=== PATIENT | female | born 1955 | race Hispanic/Latino ===

== ENCOUNTER 2018-06-07 05:44 | Inpatient (IN) | payer MEDICARE, OTHER ==
--- NOTE | 2018-06-04 09:58 | Diagnostic Imaging Report ---
PROCEDURE: X-RAY CHEST, TWO VIEWS COMPARISON: None. INDICATIONS: PREOPERATIVE CHEST XRAY FOR RIGHT HIP SURGERY FINDINGS: LUNGS: No consolidations or edema. PLEURA: No effusions or pneumothorax. HEART & MEDIASTINUM: The heart is within normal size-limits. BONES & SOFT TISSUES: Significant degenerative changes of the right shoulder. Diffuse osteophytosis of the spine. CONCLUSION: No acute thoracic abnormality. Willy Urbina D.O. Dictated by: Willy Urbina D.O. on 06/04/2018 at 10:07 Electronically approved by: Willy Urbina D.O. on 06/04/2018 at 10:07
[2018-06-04 10:03] LABS: BASOPHILS # (AUTO) 0.1 (0.0-0.1); BASOPHILS % 0.8 % (0.0-1.0); EOSINOPHILS # (AUTO) 0.1 (0.0-0.4); HEMATOCRIT 43.1 % (34.2-44.1); HEMOGLOBIN 14.2 g/dL (12.0-16.0); LYMPHOCYTES # (AUTO) 1.5 (1.0-3.2); LYMPHOCYTES % 23.2 % (18.0-39.1); MEAN CORPUSCULAR HEMOGLOBIN 33.2 pg (28-32); MEAN CORPUSCULAR HGB CONC 32.9 g/dL (31-35); MEAN CORPUSCULAR VOLUME 100.7 fL (81-99); MONOCYTES # (AUTO) 0.5 (0.2-0.8); MONOCYTES % 8.1 % (4.4-11.3); NEUTROPHILS # (AUTO) 4.3 (2.1-6.9); NEUTROPHILS % 65.6 % (38.7-80.0); PLATELET COUNT 240 x10e3/uL (140-360); RED BLOOD COUNT 4.28 x10e6/uL (3.6-5.1); RED CELL DISTRIBUTION WIDTH 13.2 % (11.7-14.4)
[2018-06-04 10:22] LABS: ANION GAP 17.3 mmol/L (8-16); CALCIUM 10.4 mg/dL (8.4-10.2); CREATININE, SERUM 0.94 mg/dL (0.57-1.11); POTASSIUM 4.3 mmol/L (3.5-5.1)
[~2018-06-07] VITALS: Ht 149.9 cm; Wt 90.0 kg
[~2018-06-07 05:44] MED LIST: ATENOLOL50 MG PO; Aspirin PO; LISINOPRIL PO; LISINOPRIL-HCT1 EAC2; NORCO 10-325 T1 EACH; NORCO 7.5-3251 EACH PO; TRAMADOL; TYLENOL WITH C1 EACH PO; ULTRAM50 MG PO
--- OUTSIDE RECORDS SUMMARY | 2018-06-07 05:47 | XMS REPORT ---
Author Author [facility] Address Unknown Phone Unavailable Care Team Providers Care Treasury Specialist Name Role Phone LETTY PACE Unavailable Unavailable Problems This patient has no known problems. Allergies, Adverse Reactions, Alerts This patient has no known allergies or adverse reactions. Medications This patient has no known medications. Results Test Description Test Time Test Comments Text Results Atomic Results Result Comments CHEST 2 VIEWS 2018-06-04 10:07:00 [place] [id number] Patient Name: JA FLEMING MR #: [id number] : 1955 Age/Sex: 63/F Req #: [id number] Adm Physician: Ordered by: LETTY PACE MD Report #: [id number] Location: OR Room/Bed: Procedure: [id number] DX/CHEST 2 VIEWS Exam Date: Exam Time: REPORT STATUS: Signed PROCEDURE: X-RAY CHEST, TWO VIEWS COMPARISON: None. INDICATIONS: PRE OPERATIVE CHEST XRAY FOR RIGHT HIP SURGERY FINDINGS: LUNGS: No consolidations or edema. PLEURA: No effusions or pneumothorax. HEART MEDIASTINUM: The heart is within normal size-limits. BONES SOFT TISSUES: Significant degenerative changes of the right shoulder. Diffuse osteophytosis of the spine. CONCLUSION: No acute thoracic abnormality. Vinayak Urbina D.O. Dictated by: Vinayak Urbina D.O. on 06/04/2018 at 10:07 Electronically approved by: Vinayak Urbnia D.O. on 06/04/2018 at 10:07 Dictated By: VINAYAK URBINA DO 1007 Transcribed By: BETH on 06/04/18 1007 COPY TO: LETTY PACE MD
[2018-06-07] MEDS ORDERED: GABAPENTIN 300 MG CAP ONE (06:14)
[2018-06-07] MEDS ORDERED: DEXAMETHASONE SOD PHOS 10 MG/1 ML VIAL ONE (06:14)
[2018-06-07] MEDS ORDERED: CELECOXIB 200 MG CAP ONE (06:14)
[2018-06-07] MEDS ORDERED: CEFAZOLIN SOD 2 GM/D5W 50ML 50 ML IV ONE (06:15)
[2018-06-07] MEDS ORDERED: BACITRACIN 50,000 UNIT VIAL ONE (06:47)
[2018-06-07] MEDS ORDERED: MUPIROCIN 2% OINT 22 GM TUBE ONE (06:47)
[2018-06-07] MEDS ORDERED: HYDROGEN PEROXIDE 120 ML BTL ONE (06:59)
[2018-06-07] MEDS ORDERED: TRANEXAMIC ACID 1,000 MG/10 ML ML ONE (06:59)
[2018-06-07] MEDS ORDERED: BUPIVACAINE 7.5MG/ML /DEXTROSE 82.5MG/ML 2 ML AMP INJ ONE (07:19)
[2018-06-07] MEDS ORDERED: LIDOCAINE HCL 2% LOCAL 20 ML VIAL ONE (07:20)
[2018-06-07] MEDS ORDERED: ROPIVACAINE 246.25 MG, EPINEPHRINE HCL 1:1000 0.5 MG, CLONIDINE HCL 0.08 MG, KETOROLAC ... INJ ONE ×5 (07:30)
[2018-06-07] MEDS ORDERED: SODIUM CHLORIDE 0.9% 1000ML 1,000 ML IV SCH (09:40)
[2018-06-07] MEDS ORDERED: PROMETHAZINE HCL (IM) 25 MG/ML VIAL IM PRN (09:45)
[2018-06-07] MEDS ORDERED: ONDANSETRON HCL INJ 2 MG/ML VIAL IV PRN (09:45)
[2018-06-07] MEDS ORDERED: ACETAMINOPHEN 650 MG SUPP PR PRN (09:45)
[2018-06-07] MEDS ORDERED: HYDROCODONE/APAP 7.5MG-325MG 1 EA TAB PO PRN (09:45)
[2018-06-07] MEDS ORDERED: HYDROCODONE/APAP 5MG-325MG TAB PO PRN (09:45)
[2018-06-07] MEDS ORDERED: KETOROLAC TROMETHAMINE 30 MG/ML VIAL IV PRN (09:45)
[2018-06-07] MEDS ORDERED: DIPHENHYDRAMINE HCL INJ 50 MG/ML VIAL IM/IV PRN (09:45)
[2018-06-07] MEDS ORDERED: DOCUSATE SODIUM 100 MG CAP PO PRN (09:45)
[2018-06-07] MEDS: ACETAMINOPHEN 1000 MG/100 ML IV SCH ×2 (10:22→17:28)
--- NOTE | 2018-06-07 11:52 | Diagnostic Imaging Report ---
PROCEDURE:X-RAY PELVIS, AP VIEW COMPARISON:None. INDICATIONS:POST RIGHT HIP SURGERY FINDINGS: Limited post operative chest radiograph status post right total hip arthroplasty. Hardware appears intact without evidence of acute fracture or malalignment. There is a deformity with sclerotic changes and fragmentation of the left femoral head with severe degenerative changes of the left hip joint. CONCLUSION: Status post right total hip arthroplasty with intact hardware and unremarkable alignment. 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 Dictated by: ANSELMO STEPHENS M.D. on 06/07/2018 at 12:02 Electronically approved by: ANSELMO STEPHENS M.D. on 06/07/2018 at 12:02
[2018-06-07] MEDS ORDERED: HYDROMORPHONE 2MG/ML 2 MG/ML ML ONE (13:53)
[2018-06-07] MEDS ORDERED: CEFAZOLIN SOD 1 GM/D5W 50ML 50 ML IV SCH (14:00)
[2018-06-07 14:49] VITALS: BP 129/71
[2018-06-07 15:19] VITALS: BP 129/71
--- NOTE | 2018-06-07 15:31 | Operative Report ---
DATE OF PROCEDURE: June 07, 2018 __ASSISTANT: Cecil Wylie PA-C __The patient was brought to the operating room for induction of anesthesia. Throughout this case, my PA's assistance was necessary for retraction of soft tissue and positioning of the extremity. This allows for efficient and technically successful execution of the operation and is considered medically necessary. PREOPERATIVE DIAGNOSIS: Right hip erosive arthritis. POSTOPERATIVE DIAGNOSIS: Right hip erosive arthritis. PROCEDURE: Complex right total hip arthroplasty. INDICATIONS: The patient is a morbidly obese 63-year-old lady who has rapidly progressive erosive arthritis in both hips. She feels her symptoms are slightly worse on the right compared to the left. She has a BMI of 42. We have explained the option of a right total hip replacement. We have explained that her limb lengths will be significantly different until she has her second hip performed. The risks and benefits otherwise of the surgery have been explained. The added risk for perioperative complications due to her BMI has been explained. She states she understands and wishes to proceed. DESCRIPTION OF PROCEDURE: The patient was brought to the operating room and placed under general anesthetic. She received prophylactic antibiotics and tranexamic acid in the holding area. She was positioned in the left lateral decubitus position. Her right hip was prepped and draped in a sterile manner. Added time and personnel were necessary due to her BMI of 42. The preoperative time out was performed. A posterior approach was made to the right hip. A slightly more extensile exposure was necessary. Hemostasis was obtained with electrocautery. A deep self-retaining Charnley retractor was placed. The posterior capsule was carefully exposed. Further hemostasis was obtained with electrocautery. The hip was severely contracted. The capsule was released along with the short external rotators. The hip was gradually brought up into flexion and internal rotation. The hip was dislocated. An oscillating saw was used to resect the femoral head advanced deformity, and collapse of the femoral head was noted. Acetabular retractors were carefully placed. Additional soft-tissue releases were necessary to gain appropriate exposure of the socket. The true floor of the acetabulum was established with a 44 mm reamer. The socket was sequentially reamed up to 51 mm. The medial wall was quite thin. Bone graft was taken from the femoral head and impacted along the medial wall. A Kati [employer]omet 52 mm outer diameter OsseoTi acetabular cup was then impacted into place. Fixation was augmented with two cancellous screws placed into the ilium. Marginal osteophytes were carefully removed. A highly crosslinked polyethylene liner with no posterior elevation and a 36 mm inner diameter was then seated into place. Care was taken to make sure that there was no evidence of soft-tissue interposition. The hip had been irrigated with a shower-tip pulsatile lavage on several occasions during this portion of the case. A portion of a 100 mL premixed pericapsular GLORIA injection was placed around the acetabular soft tissue. Attention was then directed towards the proximal femur. The hip was brought up into further internal rotation and flexion. I had to release the iliopsoas to improve range of motion. The Kati [employer]omet Taperloc broaches were then impacted into place. A number 10 stem had good canal stability for trial reductions. A standard 36 mm head provided appropriate stability. The hip was very tight in extension. The trial implants were removed. The canal was thoroughly irrigated with a shower-tip pulsatile lavage. The remainder of the injection was placed into the subcutaneous tissue. The implants were seated, and a final reduction was performed. The hip was put through a further range of motion to ensure good stability. The posterior capsule was quite thickened and readily repairable. The short external rotators were far too contracted to repair. The proximal tensor fascia and gluteal fascia were closed with interrupted number 2 Ethibond. The skin was closed with subcuticular Vicryl and brooke. Estimated blood loss was 75 mL. At the end of the procedure, all needle and sponge counts were correct. Job#: [id number] SELENA
[2018-06-07] MEDS: CEFAZOLIN SOD 1 GM VIAL IV SCH (16:40)
[2018-06-07] MEDS: ASPIRIN 325 MG TAB PO SCH (16:40)
[2018-06-07] MEDS: CELECOXIB 200 MG CAP PO SCH (16:40)
[2018-06-07] MEDS ORDERED: CELECOXIB 100 MG CAP PO SCH (17:00)
[2018-06-07 17:22] VITALS: BP 123/68
--- NOTE | 2018-06-07 18:21 | Consultation ---
DATE OF CONSULTATION: June 07, 2018 REASON FOR CONSULTATION: Medical management. HISTORY OF PRESENT ILLNESS: This is a 63-year-old white woman who underwent elective right total hip replacement today because of severe right hip erosive arthritis. The patient states her pain is adequately controlled. She voiced no complaints at this time. Blood work done on June 04, 2018 revealed a hemoglobin of 14.2 mmHg. Also, on that day the patient was found to have BUN and creatinine of 20 and 0.94 respectively. Potassium 4.3. On June 04, 2018 the patient underwent a preoperative chest x-ray which revealed significant degenerative changes of the right shoulder joint as well as diffuse osteophytosis of the dorsal spine. REVIEW OF SYSTEMS: GENERAL: The patient has lost 7 pounds in the last week due to intense pain in her hips, which make it difficult for her to ambulate to the kitchen to eat. Denies fever or chills. HEENT: No headaches, no visual changes. CARDIOVASCULAR: No chest pain or shortness of breath. GI: No nausea, vomiting, diarrhea or constipation. : No dysuria, no hematuria, no incontinence. NEUROMUSCULAR: Complains of her arthritic joint pain. At this time, her pain in her right hip joint is well controlled. ALLERGIES: NO KNOWN DRUG ALLERGIES. MEDICATIONS: 1. Lisinopril/hydrochlorothiazide 10/12.5 once daily. 2. White Bird 10/325 one b.i.d. p.r.n. pain. FAMILY HISTORY: Mother with history of knee degenerative joint disease and father who underwent hip replacement. PAST MEDICAL HISTORY: 1. Extreme obesity. 2. Hypertension. 3. Bilateral hip degenerative joint disease (severe). PAST SURGICAL HISTORY: 1. Right total knee replacement in November 2016. 2. Left total hip replacement in July 2016. 3. Laparoscopic cholecystectomy. 4. Bilateral tubal ligation. SOCIAL HISTORY: This woman lives with her common law . She does not smoke tobacco but drinks alcohol socially, usual a couple of alcohol drinks every night. The patient is currently retired. PHYSICAL EXAMINATION GENERAL: She is awake, alert. She is fully oriented. She is very pleasant and cooperative to exam. VITAL SIGNS: Height is 4 feet 11 inches, weight 195 pounds. BMI of 40. Blood pressure is 129/72, respiratory rate 18, oxygen saturation 94% on room air. Temperature 96.6. INTEGUMENT: Skin is warm and dry. No pallor, jaundice, diaphoresis. HEENT: Anicteric sclerae with moist mucous membranes. NECK: Supple. CARDIOVASCULAR: Regular rate and rhythm. LUNGS: No rales and no rhonchi, no wheezing. ABDOMEN: Obese, benign. EXTREMITIES: The patient's right hip wound is currently dressed. No edema of the lower extremities. NEUROLOGIC: Intact. The patient ambulated today with therapy after surgery. DIAGNOSES 1. Status post right total hip arthroplasty. 2. Left hip degenerative joint disease. 3. Extreme obesity. BMI of 40, complicating underlying hip degenerative joint disease and hypertension. 4. Hypertensive heart disease. PLAN: 1. Pain control. 2. Blood pressure control. 3. Will stop intravenous fluids. 4. Mobilize with physical therapy. 5. Encourage incentive spirometry use every hour while awake. _ I would like to thank Dr. Hou for this generous consultation. I spent 40 minutes in the care of this patient. Job#: [id number]
[2018-06-07] MEDS ORDERED: KETAMINE HCL INJ 50 MG/ML 10 ML VIAL ONE (18:45)
[2018-06-07] MEDS ORDERED: MIDAZOLAM HCL 2 MG/2 ML VIAL ONE (18:45)
[2018-06-07] MEDS ORDERED: FENTANYL CITRATE/PF 100MCG/2 ML INJ ONE (18:45)
[2018-06-07] MEDS ORDERED: SEVOFLURANE INHAL SOLN 250 ML PEN BTL ONE (19:26)
[2018-06-07] MEDS ORDERED: ONDANSETRON HCL INJ 2 MG/ML VIAL ONE (19:26)
[2018-06-07] MEDS ORDERED: SUCCINYLCHOLINE 200 MG/10 ML SYR ONE (19:26)
[2018-06-07] MEDS ORDERED: PROPOFOL IV EMULSION 10 MG/ML 20 ML VIAL ONE (19:26)
[2018-06-07] MEDS ORDERED: LIDOCAINE HCL 2% LOCAL INJ 5 ML SDV VIAL INJ ONE (19:26)
[2018-06-07 20:00] VITALS: BP 177/76
[2018-06-07] MEDS ORDERED: LISINOPRIL 10 MG TAB PO ONE (20:45)
[2018-06-07 20:56] VITALS: BP 177/76
[2018-06-07] MEDS ORDERED: ZOLPIDEM TARTRATE 5 MG TAB PO PRN (21:00)
[2018-06-08] VITALS: BP 133/78
[2018-06-08] MEDS: ACETAMINOPHEN 1000 MG/100 ML IV SCH ×2 (00:15→05:46)
[2018-06-08] MEDS: CEFAZOLIN SOD 1 GM VIAL IV SCH ×2 (00:15→08:42)
[2018-06-08 04:00] VITALS: BP 142/79
[2018-06-08 05:07] LABS: EOSINOPHILS % 0.1 % (0.0-6.0); HEMATOCRIT 32.8 % (34.2-44.1); HEMOGLOBIN 10.9 g/dL (12.0-16.0); LYMPHOCYTES % 13.1 % (18.0-39.1); MEAN CORPUSCULAR HEMOGLOBIN 33.9 pg (28-32); MEAN CORPUSCULAR HGB CONC 33.2 g/dL (31-35); MEAN CORPUSCULAR VOLUME 101.9 fL (81-99); MONOCYTES # (AUTO) 0.8 (0.2-0.8); NEUTROPHILS % 76.5 % (38.7-80.0); PLATELET COUNT 180 x10e3/uL (140-360); RED BLOOD COUNT 3.22 x10e6/uL (3.6-5.1); RED CELL DISTRIBUTION WIDTH 13.1 % (11.7-14.4)
[2018-06-08 05:47] LABS: ANION GAP 13.3 mmol/L (8-16); CALCIUM 9.3 mg/dL (8.4-10.2); CREATININE, SERUM 1.12 mg/dL (0.57-1.11); POTASSIUM 4.3 mmol/L (3.5-5.1)
[2018-06-08 08:00] VITALS: BP 158/74
[2018-06-08 08:18] VITALS: BP 158/74
[2018-06-08] MEDS: ASPIRIN 325 MG TAB PO SCH (08:42)
[2018-06-08] MEDS: CELECOXIB 200 MG CAP PO SCH (08:42)
[2018-06-08] MEDS ORDERED: HYDROCHLOROTHIAZIDE 25 MG TAB PO SCH (09:00)
[2018-06-08] MEDS ORDERED: LISINOPRIL 10 MG TAB PO SCH (09:00)
[2018-06-08] MEDS ORDERED: ACETAMINOPHEN 1000 MG/100 ML IV PRN (09:45)
[2018-06-08 13:46] VITALS: BP 132/78
[2018-07-02] MEDS ORDERED: ASPIRIN325 MG PO (10:13)
== END 2018-06-08 15:32 | disposition home health service (06) | DRG 470 ==
LOC: OR 05:44 → PACU V 09:42 → MED/SURG 14:27
PROVIDERS: ADMIT Specialist; ATTEND Specialist
PROC: 0SR904Z Replacement of Right Hip Joint with Ceramic on Polyethylene Synthetic Substitute, Open Approach (ICD-10-PCS; principal; 2018-06-07 08:00)
DX: M15.4 Erosive (osteo)arthritis (principal); Z68.41 Body mass index [BMI] 40.0-44.9, adult; E66.01 Morbid (severe) obesity due to excess calories; Z96.653 Presence of artificial knee joint, bilateral; I11.9 Hypertensive heart disease without heart failure; M16.12 Unilateral primary osteoarthritis, left hip; M16.0 Bilateral primary osteoarthritis of hip
CPT/HCPCS: 36415; 71046; 72170; 80048; 85025; 86850; 86900; 93005; C1713; J0171; J0690; J1100; J1885; J2001; J2250; J2405; J2795; J7030

== ENCOUNTER 2018-07-05 09:23 | Inpatient (IN) | payer MEDICARE, OTHER ==
[2018-07-02 10:43] LABS: BASOPHILS % 0.5 % (0.0-1.0); EOSINOPHILS # (AUTO) 0.2 (0.0-0.4); EOSINOPHILS % 3.2 % (0.0-6.0); HEMATOCRIT 38.8 % (34.2-44.1); HEMOGLOBIN 12.9 g/dL (12.0-16.0); LYMPHOCYTES # (AUTO) 1.7 (1.0-3.2); LYMPHOCYTES % 25.2 % (18.0-39.1); MEAN CORPUSCULAR HEMOGLOBIN 33.1 pg (28-32); MEAN CORPUSCULAR HGB CONC 33.2 g/dL (31-35); MEAN CORPUSCULAR VOLUME 99.5 fL (81-99); MONOCYTES # (AUTO) 0.6 (0.2-0.8); MONOCYTES % 8.6 % (4.4-11.3); NEUTROPHILS # (AUTO) 4.1 (2.1-6.9); NEUTROPHILS % 62.2 % (38.7-80.0); PLATELET COUNT 286 x10e3/uL (140-360); RED CELL DISTRIBUTION WIDTH 12.5 % (11.7-14.4)
[2018-07-02 11:19] LABS: ANION GAP 14.6 mmol/L (8-16); CALCIUM 10.1 mg/dL (8.4-10.2); CREATININE, SERUM 1.1 mg/dL (0.57-1.11); POTASSIUM 3.6 mmol/L (3.5-5.1)
[~2018-07-05] VITALS: Ht 162.6 cm; Wt 89.8 kg
[~2018-07-05 09:23] MED LIST changes: +ASPIRIN325 MG PO; +BUPIVACAINE 7.5MG/ML /DEXTROSE 82.5MG/ML 2 ML AMP INJ ONE; +ROPIVACAINE 246.25 MG, EPINEPHRINE HCL 1:1000 0.5 MG, CLONIDINE HCL 0.08 MG, KETOROLAC ... INJ ONE
[2018-07-05] MEDS ORDERED: DEXAMETHASONE SOD PHOS 10 MG/1 ML VIAL ONE (09:43)
[2018-07-05] MEDS ORDERED: GABAPENTIN 300 MG CAP ONE (09:43)
[2018-07-05] MEDS ORDERED: CELECOXIB 200 MG CAP ONE (09:43)
[2018-07-05] MEDS ORDERED: CEFAZOLIN SOD 2 GM/D5W 50ML 50 ML IV ONE (09:43)
[2018-07-05] MEDS ORDERED: BACITRACIN 50,000 UNIT VIAL ONE (09:47)
[2018-07-05] MEDS ORDERED: TRANEXAMIC ACID 1,000 MG/10 ML ML ONE (09:47)
[2018-07-05] MEDS ORDERED: LORAZEPAM 0.5 MG TAB ONE (09:47)
[2018-07-05] MEDS: SODIUM CHLORIDE 0.9% 1000ML 1,000 ML IV SCH ×2 (12:17→22:16)
[2018-07-05] MEDS ORDERED: HYDROMORPHONE 2MG/ML 2 MG/ML ML ONE (12:26)
[2018-07-05] MEDS ORDERED: DIPHENHYDRAMINE HCL INJ 50 MG/ML VIAL IM/IV PRN (12:30)
[2018-07-05] MEDS ORDERED: ONDANSETRON HCL INJ 2 MG/ML VIAL IV PRN (12:30)
[2018-07-05] MEDS ORDERED: HYDROCODONE/APAP 7.5MG-325MG 1 EA TAB PO PRN (12:30)
[2018-07-05] MEDS ORDERED: HYDROCODONE/APAP 5MG-325MG TAB PO PRN (12:30)
[2018-07-05] MEDS ORDERED: DOCUSATE SODIUM 100 MG CAP PO PRN (12:30)
[2018-07-05] MEDS ORDERED: PROMETHAZINE HCL (IM) 25 MG/ML VIAL IM PRN (12:30)
[2018-07-05] MEDS ORDERED: KETOROLAC TROMETHAMINE 30 MG/ML VIAL IV PRN (12:30)
[2018-07-05] MEDS ORDERED: ACETAMINOPHEN 650 MG SUPP PR PRN (12:30)
--- NOTE | 2018-07-05 13:41 | Operative Report ---
DATE OF PROCEDURE: July 05, 2018 FARM TRUCK DRIVER: Cecil Wylie PA-C The patient was brought to the operating room for induction of anesthesia. Throughout this case, my PA's assistance was necessary for retraction of soft tissue and positioning of the extremity. This allows for efficient and technically successful execution of the operation and is considered medically necessary. PREOPERATIVE DIAGNOSIS: Osteoarthritis, left hip. POSTOPERATIVE DIAGNOSIS: Osteoarthritis, left hip. PROCEDURE: Left total hip arthroplasty. INDICATIONS: The patient is a 63-year-old lady who has severe erosive arthritis in her left hip. She has failed conservative management and would like to proceed with a left total hip replacement. She has been through a right total hip replacement and is familiar with the procedure. We have reviewed the risks and benefits. She states she understands and wishes to proceed. DESCRIPTION OF PROCEDURE: The patient was brought to the operating room and placed under general anesthetic. She received prophylactic antibiotics and tranexamic acid in the holding area. She was positioned in the right lateral decubitus position. Added time and personnel was necessary due to her BMI of over 40. The left hip was prepped and draped in a sterile manner. A preoperative time out was performed. A posterior approach was made to the left hip. Hemostasis was obtained with electrocautery. A deep self-retraining Charnley retractor was placed. Aggressive soft tissue releases were necessary due to the severe proximal migration of the left hip joint. The acetabulum was carefully exposed. A large amount of synovitis was excised. The true floor of the acetabulum was established with a 46-mm reamer. The socket was then sequentially reamed up to 55 mm. Some consideration was given to grafting the superior dome. With a 56-mm socket, there was good coverage and fixation. The Kati [employer]omet osteo-T socket was impacted into place. Fixation was augmented with 2 cancellous screws placed into the ilium. Excellent fixation was felt to be obtained. Large periacetabular osteophytes were excised with a curved osteotome and Cavazos elevator. A portion of a 100 mL premixed pericapsular injection was injected around the surrounding soft tissue. A highly cross link polyethylene liner with a 36 mm inner diameter was then seated into place. Care was taken to make sure that there was no evidence of soft tissue interposition. The socket was thoroughly irrigated on several occasions with a shower-tip pulsatile lavage. The socket was packed with a moistened soaked lap sponge, and attention was directed towards the proximal femur. A Kati [employer]omet Taperloc broaches were impacted. A size 11 stem had good canal fill and rotational stability for trial reductions. A standard 36-mm head accomplished good evangelical of limb length and stability. The trial implants were removed. The hip was further irrigated with a shower-tip pulsatile lavage. The implants were impacted into place and the ceramic head was seated onto the stem. A final reduction was performed. The remainder of the pericapsular injection was placed into the surrounding soft tissue. The posterior capsule was repaired with interrupted #2 Ethibond. The tensor fascia and gluteal fascia were closed with #2 Ethibond. The skin was closed with subcuticular Vicryl and brooke. Estimated blood loss was approximately 100 mL. At the end of the procedure, all needle and sponge counts were correct. Job#: [id number] MD
--- NOTE | 2018-07-05 15:00 | Diagnostic Imaging Report ---
EXAM: PELVIS AP 1-2 VIEWS DATE: 07/05/2018 12:17 PM INDICATION: Postoperative, hip arthroplasty COMPARISON: None FINDINGS: Bilateral hip arthroplasty changes are present with subcutaneous gas and skin brooke present on the left. Alignment satisfactory. IMPRESSION: Postsurgical. Signed by: Dr. Jose Alex MD on 07/05/2018 2:57 PM
--- NOTE | 2018-07-05 16:37 | Consultation ---
DATE OF CONSULTATION: July 05, 2018 REASON FOR CONSULTATION: Medical management. HISTORY OF PRESENT ILLNESS: This is a 63-year-old white woman who today underwent successful left total hip arthroplasty because of advanced left hip osteoarthritis. The patient actually underwent right total hip arthroplasty on June 07, 2018 which she tolerated quite well. The patient states that she was climbing stairs prior to this admission. The patient voiced no complaints at this time. REVIEW OF SYSTEMS: GENERAL: The patient has lost 11 pounds over the last month intentionally. No fever or chills. HEENT: No headaches and no visual changes. CARDIOVASCULAR/RESPIRATORY: No chest pain, no shortness of breath or cough. GI: No nausea. : No dysuria, no hematuria, no incontinence. Puga catheter is in place but will come out soon. NEUROMUSCULAR: States her hip pain is well controlled at this time. ALLERGIES: NO KNOWN DRUG ALLERGIES. PAST SURGICAL HISTORY: 1. Left total hip arthroplasty today. 2. Right total hip arthroplasty in June 07, 2018. 3. Right total knee replacement in November 2016. 4. Left total hip replacement July 2016. 5. Laparoscopic cholecystectomy. 6. Bilateral tubal ligation. PAST MEDICAL HISTORY: 1. Extreme obesity. 2. Hypertension. 3. Bilateral hip, degenerative disk disease (severe). FAMILY HISTORY: Mother with history of knee degenerative joint disease and father her underwent hip replacement. MEDICATIONS: 1. Lisinopril/hydrochlorothiazide 10/12.5 mg daily. 2. Echo 10/325 one b.i.d. p.r.n. pain. SOCIAL HISTORY: The woman lives with her common law . She does not smoke, but drinks alcohol socially, usually a couple of alcohol drinks every night. The patient is currently retired. PHYSICAL EXAMINATION GENERAL: She is awake, alert. She is very pleasant and cooperative with exam. VITAL SIGNS: Height 4 feet 11 inches. Weight is 187 pounds. BMI 38. Blood pressure is 104/58, pulse 62, respiratory rate 18. Oxygen saturation 99% on 2 liters of oxygen. Temperature 98.0. INTEGUMENT: Skin is warm and dry. No pallor, jaundice, diaphoresis. HEENT: Anicteric sclerae with moist mucous membranes. NECK: Supple. CARDIOVASCULAR: Regular rate and rhythm. LUNGS: No rales and no rhonchi. No wheezing. ABDOMEN: Benign. EXTREMITIES: No edema or deformity. Surgical wound is clean, dry and intact. It is currently dressed. NEUROLOGIC: Intact. DIAGNOSES 1. Status post left total hip arthroplasty. 2. Obesity. BMI 38, complicating the patient's underlying hypertension and degenerative joint disease. 3. Hypertensive heart disease. PLAN: 1. Resume home blood pressure medications. 2. Pain control. 3. Mobilize with physical therapy. 4. Encourage. 5. Incentive spirometry use, 10 inspirations every hour while awake. I would like to thank Dr. Abel Hou for this generous consult. I spent 45 minutes in the care of this patient. Job#: [id number] GH DONTE
[2018-07-05] MEDS ORDERED: CELECOXIB 100 MG CAP PO SCH (17:00)
[2018-07-05] MEDS: ASPIRIN 325 MG TAB PO SCH (17:00)
[2018-07-05] MEDS: CELECOXIB 200 MG CAP PO SCH (17:00)
[2018-07-05] MEDS ORDERED: FENTANYL CITRATE/PF 100MCG/2 ML INJ ONE (17:59)
[2018-07-05] MEDS ORDERED: MIDAZOLAM HCL 2 MG/2 ML VIAL ONE (17:59)
[2018-07-05] MEDS: CEFAZOLIN SOD 1 GM/D5W 50ML 50 ML IV SCH (18:00)
[2018-07-05] MEDS: ACETAMINOPHEN 1000 MG/100 ML IV SCH (18:00)
[2018-07-05] MEDS ORDERED: EPHEDRINE SULFATE INJ 50 MG/10 ML SYR ONE (18:27)
[2018-07-05] MEDS ORDERED: PROPOFOL IV EMULSION 10 MG/ML 20 ML VIAL ONE (18:27)
[2018-07-05] MEDS ORDERED: SEVOFLURANE INHAL SOLN 250 ML PEN BTL ONE (18:27)
[2018-07-05] MEDS ORDERED: LIDOCAINE HCL 2% LOCAL INJ 5 ML SDV VIAL INJ ONE (18:27)
[2018-07-05] MEDS ORDERED: ONDANSETRON HCL INJ 2 MG/ML VIAL ONE (18:27)
[2018-07-05] MEDS ORDERED: KETOROLAC TROMETHAMINE 30 MG/ML VIAL ONE (18:27)
[2018-07-05 18:46] VITALS: BP 108/61
--- NOTE | 2018-07-05 18:46 | NUR ---
ARRIVED VIA BED FROM PACU, AA&OX3,RA, L HIP DRESSING CDI, DENIES PAIN, ORIENTED TO ROOM AND CALL LIGHT SYSTEM, CALL LIGHT WITHIN REACH, FAMILY AT SIDE
[2018-07-05 20:00] VITALS: BP 84/47
[2018-07-05] MEDS ORDERED: ZOLPIDEM TARTRATE 5 MG TAB PO PRN (21:00)
[2018-07-06] VITALS: BP 105/60
[2018-07-06] MEDS: ACETAMINOPHEN 1000 MG/100 ML IV SCH ×2 (00:22→06:31)
[2018-07-06] MEDS: CEFAZOLIN SOD 1 GM/D5W 50ML 50 ML IV SCH ×2 (02:39→09:56)
[2018-07-06 03:06] VITALS: BP 84/47
[2018-07-06 03:15] VITALS: BP 105/60
[2018-07-06 04:00] VITALS: BP 102/70
[2018-07-06 05:46] LABS: BASOPHILS % 0.1 % (0.0-1.0); HEMATOCRIT 30.9 % (34.2-44.1); LYMPHOCYTES % 11.7 % (18.0-39.1); MEAN CORPUSCULAR HEMOGLOBIN 32.6 pg (28-32); MEAN CORPUSCULAR HGB CONC 32.4 g/dL (31-35); MEAN CORPUSCULAR VOLUME 100.7 fL (81-99); MONOCYTES # (AUTO) 0.9 (0.2-0.8); MONOCYTES % 10.2 % (4.4-11.3); NEUTROPHILS # (AUTO) 6.6 (2.1-6.9); NEUTROPHILS % 77.8 % (38.7-80.0); PLATELET COUNT 205 x10e3/uL (140-360); RED BLOOD COUNT 3.07 x10e6/uL (3.6-5.1); RED CELL DISTRIBUTION WIDTH 12.7 % (11.7-14.4)
[2018-07-06 06:18] LABS: ANION GAP 14.3 mmol/L (8-16); CALCIUM 8.7 mg/dL (8.4-10.2); CREATININE, SERUM 1.33 mg/dL (0.57-1.11); POTASSIUM 4.3 mmol/L (3.5-5.1)
--- NOTE | 2018-07-06 07:05 | NUR ---
Received patient mid fowlers position, side rails upx2, call light within reach. AAOX4 to time, person, place, situation. Respirations even and unlabored. Dressing to left hip clean, dry, and intact. Instructed patient to use call light for assistance. Voiced understanding.
[2018-07-06] MEDS: ASPIRIN 325 MG TAB PO SCH (09:15)
[2018-07-06] MEDS: CELECOXIB 200 MG CAP PO SCH (09:15)
[2018-07-06] MEDS ORDERED: SODIUM CHLORIDE 0.9% 250ML 250 ML ONE (09:47)
--- NOTE | 2018-07-06 09:57 | NUR ---
C--M MET WITH PT IN ROOM PT HAD RIGHT HIP REPLACED HERE APPROX 1 MONTH AGO PT LIVES WITH SIGNIFICANT OTHER, KERA DELVALLE IN A HOUSE IN [place] PT HAS A R.W. AND 3 IN 1 COMMODE FROM LAST HIP SURGERY HOME HEALTH PRE-ARRANGED BY SALLIE AT DR MESA OFFICE WITH [facility] PH [phone] CM SPOKE WITH JODY AT [facility] WHO CONFIRMS SHE HAS ORDERS AND WILL ADMIT PT ON 07/06 CLINICAL INFO FAXED TO [phone]; CONFIRMATION REC'D CHOICE LETTER SIGNED AND ON CHART COPY TO PT IMM EXPLAINED,SIGNED AND ON CHART; COPY TO PT GAVE PT MY CARD FOR QUESTIONS/CONCERNS
[2018-07-06] MEDS ORDERED: ASPIRIN325 MG PO (10:07)
[2018-07-06 12:00] VITALS: BP 108/52
[2018-07-06] MEDS ORDERED: ACETAMINOPHEN 1000 MG/100 ML IV PRN (12:30)
[2018-07-06] MEDS ORDERED: NORCO 7.5-3251 EACH PO (13:20)
--- NOTE | 2018-07-06 15:20 | NUR ---
Instructed patient on wound care orders. Patient voiced understanding and states " I have had this procedure in the past on my other leg. I know I'll be able to take care of the site"
--- NOTE | 2018-07-06 15:45 | NUR ---
right hand IV discontinued. No signs of infiltration noted. 2x2 gauze and tape placed. taken via wheelchair by pct to personal car. AAOX4 to time, person, place, situation. Respirations even and unlabored. Dressing to left hip clean, dry, and intact. All personal belongings, rx, and discharge instructions taken with patient.
== END 2018-07-06 15:46 | disposition home or self-care (01) | DRG 470 ==
LOC: OR 09:23 → MED/SURG 18:33
PROVIDERS: ADMIT Specialist; ATTEND Specialist
PROC: 0SRB0J9 Replacement of Left Hip Joint with Synthetic Substitute, Cemented, Open Approach (ICD-10-PCS; principal; 2018-07-05 11:30)
DX: M16.12 Unilateral primary osteoarthritis, left hip (principal); Z68.38 Body mass index [BMI] 38.0-38.9, adult; E66.9 Obesity, unspecified; Z96.641 Presence of right artificial hip joint; I11.9 Hypertensive heart disease without heart failure
CPT/HCPCS: 36415; 72170; 80048; 85025; 86850; 86900; 86920; C1713; J0171; J0690; J1100; J1885; J2001; J2250; J2405; J2795; J7030; J7050; P9016

== ENCOUNTER 2022-04-14 11:00 | Emergency (ER) | payer MEDICARE, OTHER ==
[~2022-04-14] VITALS: Ht 162.6 cm; Wt 89.8 kg
[~2022-04-14 11:00] MED LIST changes: -BUPIVACAINE 7.5MG/ML /DEXTROSE 82.5MG/ML 2 ML AMP INJ ONE; -ROPIVACAINE 246.25 MG, EPINEPHRINE HCL 1:1000 0.5 MG, CLONIDINE HCL 0.08 MG, KETOROLAC ... INJ ONE
[2022-04-14] MEDS ORDERED: HYDRALAZINE HCL 20 MG/ML VIAL IV PRN (11:45)
[2022-04-14] MEDS: OXYMETAZOLINE HCL 0.05% NAS 1 SPRAY BTL SCH ×2 (11:59→12:18)
[2022-04-14 12:35] LABS: BASOPHILS # (AUTO) 0.1 (0.0-0.1); BASOPHILS % 0.5 % (0.0-1.0); EOSINOPHILS # (AUTO) 0.2 (0.0-0.4); EOSINOPHILS % 1.3 % (0.0-6.0); HEMATOCRIT 49.4 % (34.2-44.1); HEMOGLOBIN 15.7 g/dL (12.0-16.0); LYMPHOCYTES # (AUTO) 2.5 (1.0-3.2); LYMPHOCYTES % 16.2 % (18.0-39.1); MEAN CORPUSCULAR HEMOGLOBIN 33.8 pg (28-32); MEAN CORPUSCULAR HGB CONC 31.8 g/dL (31-35); MEAN CORPUSCULAR VOLUME 106.2 fL (81-99); MONOCYTES # (AUTO) 0.9 (0.2-0.8); MONOCYTES % 5.9 % (4.4-11.3); NEUTROPHILS # (AUTO) 11.5 (2.1-6.9); NEUTROPHILS % 75.8 % (38.7-80.0); PLATELET COUNT 209 x10e3/uL (140-360); RED BLOOD COUNT 4.65 x10e6/uL (3.6-5.1); RED CELL DISTRIBUTION WIDTH 12.7 % (11.7-14.4)
[2022-04-14 12:49] LABS: INR 0.94; PROTHROMBIN TIME 13.4 seconds (11.9-14.5)
[2022-04-14 12:58] LABS: ALBUMIN 4.2 g/dL (3.5-5.0); ALBUMIN/GLOBULIN RATIO 1.2 (0.8-2.0); ANION GAP 18.7 mmol/L (8-16); CALCIUM 9.4 mg/dL (8.4-10.2); CREATININE, SERUM 1.1 mg/dL (0.57-1.11); POTASSIUM 3.7 mmol/L (3.5-5.1)
[2022-04-14] MEDS ORDERED: NIFEDIPINE10 MG PO (13:20)
[2022-04-14 13:38] VITALS: BP 159/93
== END 2022-04-14 13:35 | disposition home or self-care (01) ==
LOC: ER 11:08
DX: I10 Essential (primary) hypertension (principal); R04.0 Epistaxis
CPT/HCPCS: 36415; 71045; 80053; 84484; 85025; 85610; 93005; 99284; J0360